=== PATIENT | female | born 1980 | race American Indian/Alaskan Native ===

== ENCOUNTER 2019-01-07 19:14 | Emergency (ER) | payer OTHER ==
--- NOTE | 2019-01-07 19:41 | Emergency Department Report ---
Blank Doc - Documentation Documentation: 38 y o female presents to ED with left temporal throbbing headache, no injury no falls photosensitive, with nausea pain control Acc evaluate
[2019-01-07] MEDS ORDERED: BENADRYL IV STA (23:38)
[2019-01-07] MEDS ORDERED: REGLAN IV STA (23:38)
[2019-01-07] MEDS ORDERED: TORADOL IV STA (23:38)
[2019-01-07] MEDS ORDERED: NACL 0.9% 1000 ML 1,000 ML IV ONE (23:38)
--- NOTE | 2019-01-07 23:46 | Emergency Department Report ---
ED Headache HPI - General Chief Complaint: Headache Stated Complaint: MIGRAINE Time Seen by Provider: 01/07/19 19:37 - History of Present Illness Timing/Duration: other (couple days) Quality: mild, moderate Head Injury Location: temporal, occipital Recent Head Trauma: no recent headache/trauma Modifying Factors: worse with: cold therapy, exposure to light, immobilization, medication, movement, rest, other Associated Symptoms: denies: fatigue, facial pain, fever/chills, nasal congestion, nasal drainage, rash, sinus infection, stiff neck, vision changes, weakness Allergies/Adverse Reactions: Allergies No Known Allergies Allergy (Verified 01/07/19 19:17) Home Medications: Ambulatory Orders Butalb/Acetaminophen/Caffeine [Fioricet 50-300-40 mg CAP] 1 cap PO Q6HR PRN #20 cap 01/08/19 ED Review of Systems ROS: Stated complaint: MIGRAINE Other details as noted in HPI Constitutional: denies: chills, fever Eyes: denies: eye pain, eye discharge, vision change ENT: denies: ear pain, throat pain Respiratory: denies: cough, shortness of breath, wheezing Cardiovascular: denies: chest pain, palpitations Endocrine: no symptoms reported Gastrointestinal: denies: abdominal pain, nausea, diarrhea Genitourinary: denies: urgency, dysuria, discharge Musculoskeletal: denies: back pain, joint swelling, arthralgia Skin: denies: rash, lesions Neurological: denies: headache, weakness, paresthesias Psychiatric: denies: anxiety, depression Hematological/Lymphatic: denies: easy bleeding, easy bruising ED Past Medical Hx - Past Medical History Previous Medical History?: Yes Hx Asthma: Yes - Surgical History Past Surgical History?: No - Social History Smoking Status: Never Smoker Substance Use Type: None - Medications Home Medications: Home Medications Medication Instructions Recorded Confirmed Last Taken Type Butalb/Acetaminophen/Caffeine 1 cap PO Q6HR PRN #20 cap 01/08/19 Unknown Rx [Fioricet 50-300-40 mg CAP] ED Physical Exam - General Limitations: No Limitations General appearance: alert, in no apparent distress - Head Head exam: Present: atraumatic, normocephalic - Eye Eye exam: Present: normal appearance, PERRL, EOMI, scleral icterus, other (neg fundus exam). Absent: conjunctival injection, periorbital swelling, periorbital tenderness Pupils: Present: normal accommodation, other - ENT ENT exam: Present: normal exam, normal orophraynx, mucous membranes moist, TM's normal bilaterally - Neck Neck exam: Present: normal inspection, full ROM. Absent: tenderness, meningismus, lymphadenopathy, thyromegaly - Respiratory Respiratory exam: Present: normal lung sounds bilaterally. Absent: respiratory distress, wheezes, rales, rhonchi, stridor, chest wall tenderness, accessory muscle use, decreased breath sounds, prolonged expiratory - Cardiovascular Cardiovascular Exam: Present: regular rate, normal rhythm. Absent: bradycardia, tachycardia, systolic murmur, diastolic murmur, rubs, gallop - GI/Abdominal GI/Abdominal exam: Present: soft, normal bowel sounds. Absent: tenderness, guarding, rebound, hyperactive bowel sounds, hypoactive bowel sounds, organomegaly - Extremities Exam Extremities exam: Present: normal inspection, full ROM, normal capillary refill. Absent: pedal edema, joint swelling - Back Exam Back exam: Present: normal inspection, full ROM. Absent: CVA tenderness (R), CVA tenderness (L), muscle spasm - Neurological Exam Neurological exam: Present: alert, oriented X3, CN II-XII intact, normal gait. Absent: motor sensory deficit - Psychiatric Psychiatric exam: Present: normal affect, normal mood. Absent: anxious, flat affect, manic - Skin Skin exam: Present: warm, dry, intact, normal color. Absent: rash ED Course Vital Signs 01/07/19 01/08/19 19:38 01:10 Temperature 98.6 F 98 F Pulse Rate 84 77 Respiratory 18 18 Rate Blood Pressure 114/77 Blood Pressure 107/45 [Left] O2 Sat by Pulse 98 99 Oximetry Critical care attestation.: If time is entered above; I have spent that time in minutes in the direct care of this critically ill patient, excluding procedure time. ED Disposition Clinical Impression: Cephalgia Disposition: DC-01 TO HOME OR SELFCARE Is pt being admited?: No Does the pt Need Aspirin: No Condition: Stable Instructions: Migraine Headache (ED), Acute Headache (ED) Prescriptions: Butalb/Acetaminophen/Caffeine [Fioricet 50-300-40 mg CAP] 1 cap PO Q6HR PRN #20 cap PRN Reason: Headache Referrals: PRIMARY CARE, [Primary Care Provider] - 3-5 Days [facility] [Provider Group] - 3-5 Days [facility] [Provider Group] - 3-5 Days
[2019-01-08 02:01] VITALS: BP 107/45
== END 2019-01-08 01:10 | disposition home or self-care (01) ==
LOC: ED 19:14
DX: R51 Headache (principal); R09.81 Nasal congestion; R53.1 Weakness; J45.909 Unspecified asthma, uncomplicated
CPT/HCPCS: 96374; 96375; 99282; J1200; J1885; J2765; J7030

== ENCOUNTER 2019-03-14 08:16 | Emergency (ER) | payer OTHER ==
[2019-03-14] MEDS ORDERED: TORADOL IM ONE (09:43)
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
[2019-03-14 11:00] VITALS: BP 128/74
== END 2019-03-14 10:58 | disposition home or self-care (01) ==
LOC: ED 08:16
DX: M54.5 Low back pain (principal); G89.29 Other chronic pain; J45.909 Unspecified asthma, uncomplicated
CPT/HCPCS: 96372; 99282; J1885

== ENCOUNTER 2019-04-10 01:01 | Emergency (ER) | payer OTHER ==
[2019-04-10 01:09] VITALS: BP 121/69
[2019-04-10 01:40] LABS: Bilirubin,Urine NEG (Negative); Blood,Urine SM (Negative); Color,Urine Yellow (Yellow); Mucus,Urine FEW /HPF; Protein,Urine <15 mg/dL mg/dL (Negative); Urobilinogen,Urine < 2.0 mg/dL (<2.0)
[2019-04-10] MEDS ORDERED: BENADRYL IV ONE (01:52)
[2019-04-10] MEDS ORDERED: TORADOL IV ONE (01:52)
[2019-04-10] MEDS ORDERED: REGLAN IV ONE (01:52)
[2019-04-10] MEDS ORDERED: FIORICET PO ONE (01:53)
--- NOTE | 2019-04-10 02:51 | Emergency Department Report ---
ED General Adult HPI - General Chief complaint: Headache Stated complaint: MIGRAINE,FEMININE ISSUES Time Seen by Provider: 04/10/19 02:10 Source: patient Mode of arrival: Ambulatory Limitations: No Limitations - History of Present Illness Initial comments: Patient is a 38-year-old -N[place]alese female with a history of chronic migraine headaches who presents to the ED with complaint of acute exacerbation of her chronic diffuse migraine headaches with nausea and photophobia for the last 2 days. Patient states that the symptoms are consistent with her chronic migraine headaches. Patient states that she has been taking [id number] medications for pain and that these have not helped control her pain. Patient denies dizziness, change in vision, fever, chills, neck pain, dizziness, chest pain, shortness of breath, sore throat, syncope or seizures, cough or abdominal pain. MD Complaint: Migraine headache -: Gradual, week(s) (1) Location: head Radiation: non-radiation Severity scale (0 -10): 3 Quality: aching, sharp, dull Consistency: constant Improves with: none Worsens with: none Associated Symptoms: denies other symptoms. denies: confusion, chest pain, cough, diaphoresis, fever/chills, headaches, loss of appetite, nausea/vomiting, shortness of breath, syncope, weakness Treatments Prior to Arrival: none - Related Data Previous Rx's Medication Instructions Recorded Last Taken Type Butalb/Acetaminophen/Caffeine 1 cap PO Q6HR PRN #20 cap 01/08/19 Unknown Rx [Fioricet 50-300-40 mg CAP] Butalb/Acetaminophen/Caffeine 1 cap PO Q6HR PRN #20 cap 01/14/19 Unknown Rx [Fioricet 50-300-40 mg CAP] Butalb/Acetamin/Caff 50-325-40 1 tab PO Q6HR PRN #15 tab 04/10/19 Unknown Rx [Fioricet 50-325-40] Ketorolac [Toradol] 10 mg PO Q8H PRN #20 tablet 04/10/19 Unknown Rx Promethazine [Phenergan] 25 mg PO Q6HR PRN #24 tab 04/10/19 Unknown Rx Allergies Allergy/AdvReac Type Severity Reaction Status Date / Time No Known Allergies Allergy Verified 01/07/19 19:17 ED Review of Systems ROS: Stated complaint: MIGRAINE,FEMININE ISSUES Other details as noted in HPI Constitutional: denies: chills, fever Eyes: denies: eye pain, eye discharge, vision change ENT: denies: ear pain, throat pain Respiratory: denies: cough, shortness of breath, wheezing Cardiovascular: denies: chest pain, palpitations Endocrine: no symptoms reported Gastrointestinal: nausea. denies: abdominal pain, vomiting, diarrhea, hematemesis, hematochezia Genitourinary: denies: urgency, dysuria, discharge Musculoskeletal: denies: back pain, joint swelling, arthralgia Skin: denies: rash, lesions Neurological: headache. denies: weakness, paresthesias Psychiatric: denies: anxiety, depression Hematological/Lymphatic: denies: easy bleeding, easy bruising ED Past Medical Hx - Past Medical History Previous Medical History?: Yes Hx Asthma: Yes Additional medical history: back pain - Surgical History Past Surgical History?: No - Social History Smoking Status: Never Smoker Substance Use Type: None - Medications Home Medications: Home Medications Medication Instructions Recorded Confirmed Last Taken Type Butalb/Acetaminophen/Caffeine 1 cap PO Q6HR PRN #20 cap 01/08/19 Unknown Rx [Fioricet 50-300-40 mg CAP] Butalb/Acetaminophen/Caffeine 1 cap PO Q6HR PRN #20 cap 01/14/19 Unknown Rx [Fioricet 50-300-40 mg CAP] Butalb/Acetamin/Caff 50-325-40 1 tab PO Q6HR PRN #15 tab 04/10/19 Unknown Rx [Fioricet 50-325-40] Ketorolac [Toradol] 10 mg PO Q8H PRN #20 tablet 04/10/19 Unknown Rx Promethazine [Phenergan] 25 mg PO Q6HR PRN #24 tab 04/10/19 Unknown Rx ED Physical Exam - General Limitations: No Limitations General appearance: alert, in no apparent distress - Head Head exam: Present: atraumatic, normocephalic, normal inspection - Eye Eye exam: Present: normal appearance, PERRL, EOMI. Absent: scleral icterus, conjunctival injection Pupils: Present: normal accommodation - ENT ENT exam: Present: normal exam, normal orophraynx, mucous membranes moist, TM's normal bilaterally, normal external ear exam - Neck Neck exam: Present: normal inspection, full ROM. Absent: lymphadenopathy - Respiratory Respiratory exam: Present: normal lung sounds bilaterally. Absent: respiratory distress, rales, rhonchi, stridor, chest wall tenderness, accessory muscle use, prolonged expiratory - Cardiovascular Cardiovascular Exam: Present: regular rate, normal rhythm, normal heart sounds. Absent: systolic murmur, diastolic murmur, rubs, gallop - GI/Abdominal GI/Abdominal exam: Present: soft, normal bowel sounds. Absent: tenderness, gua rding, rebound, hyperactive bowel sounds, hypoactive bowel sounds, organomegaly, pulsatile mass - Rectal Rectal exam: Present: deferred - Extremities Exam Extremities exam: Present: normal inspection, full ROM, normal capillary refill - Back Exam Back exam: Present: normal inspection, full ROM. Absent: tenderness, CVA tenderness (R), CVA tenderness (L), vertebral tenderness - Neurological Exam Neurological exam: Present: alert, oriented X3, CN II-XII intact, normal gait, reflexes normal - Psychiatric Psychiatric exam: Present: normal affect, normal mood - Skin Skin exam: Present: warm, dry, intact, normal color. Absent: rash ED Course Vital Signs 04/10/19 01:05 Temperature 98.6 F Pulse Rate 62 Respiratory 19 Rate Blood Pressure 121/69 O2 Sat by Pulse 100 Oximetry - Reevaluation(s) Reevaluation #1: 04/10/19 02:55 Patient is alert and oriented 3 and is not in any distress with normal vital signs. Patient was treated for pain in the ED and on reevaluation, patient's pain is moderately controlled. Patient was discharged home on medications and antiemetics and advised to follow-up with her primary care physician in 3-5 days for reevaluation. Patient is advised to return to the ED immediately if symptoms get worse. ED Medical Decision Making - Medical Decision Making 04/10/19 02:55 Patient is alert and oriented 3 and is not in any distress with normal vital signs. Patient was treated for pain in the ED and on reevaluation, patient's pain is moderately controlled. Patient was discharged home on medications and antiemetics and advised to follow-up with her primary care physician in 3-5 days for reevaluation. Patient is advised to return to the ED immediately if symptoms get worse. Patient is hemodynamically stable at triage - Differential Diagnosis chronic migraine headaches; Chronic pain; Cervical strain Critical care attestation.: If time is entered above; I have spent that time in minutes in the direct care of this critically ill patient, excluding procedure time. ED Disposition Clinical Impression: Chronic migraine without aura Qualifiers: Status migrainosus presence: without status migrainosus Intractability: not intractable Qualified Code(s): G43.709 - Chronic migraine without aura, not intractable, without status migrainosus Disposition: TO HOME OR SELFCARE Is pt being admited?: No Does the pt Need Aspirin: No Condition: Stable Instructions: Migraine Headache (ED) Additional Instructions: Take medications with food, drink plenty of fluids and follow up with your primary Physician in 3-5 days for reevaluation. Return to the ED immediately if symptoms get worse. Prescriptions: Butalb/Acetamin/Caff 50-325-40 [Fioricet 50-325-40] 1 tab PO Q6HR PRN #15 tab PRN Reason: Headache Promethazine [Phenergan] 25 mg PO Q6HR PRN #24 tab PRN Reason: Nausea Ketorolac [Toradol] 10 mg PO Q8H PRN #20 tablet PRN Reason: Pain Referrals: [facility] [Outside] - 3-5 Days Time of Disposition: 03:14 Print Language: HUNGARIAN
== END 2019-04-10 03:31 | disposition home or self-care (01) ==
LOC: ED 01:01
DX: G43.709 Chronic migraine without aura, not intractable, without status migrainosus (principal); J45.909 Unspecified asthma, uncomplicated; M54.9 Dorsalgia, unspecified; Z79.899 Other long term (current) drug therapy
CPT/HCPCS: 81001; 96374; 96375; 99283; J1200; J1885; J2765

== ENCOUNTER 2020-09-25 08:54 | Emergency (ER) | payer OTHER ==
[2020-09-25 10:33] LABS: Bilirubin,Urine NEG (Negative); Blood,Urine MOD (Negative); Color,Urine Yellow (Yellow); Mucus,Urine FEW /HPF; Protein,Urine <15 mg/dL mg/dL (Negative); Urobilinogen,Urine < 2.0 mg/dL (<2.0); WBC,Urine < 1.0 /HPF (0.0-6.0)
[2020-09-25 10:48] LABS: HCG Qualitative,Urine Negative (Negative)
[2020-09-25] MEDS ORDERED: HYDROcodone/ACETAMINOPHEN 5-325 MG TAB PO ONE (14:04)
--- NOTE | 2020-09-25 14:07 | Emergency Department Report ---
ED Abdominal Pain HPI - General Chief Complaint: Urogenital-Female Stated Complaint: PERSONAL Time Seen by Provider: 09/25/20 14:03 Source: patient Mode of arrival: Ambulatory Limitations: No Limitations - History of Present Illness Initial Comments: This is a 40-year-old female she is complaining of left lower quadrant pain for several weeks. Patient reports a history of bacterial vaginosis several weeks ago she was treated by her physician with Flagyl. She now states that left lower abdominal pain has been worsening and is now a 8/10. She denies nausea vomiting and diarrhea denies fever chills. Her last bowel movement was yesterday she denies fever she denies any past surgical history she is awake alert oriented in no acute distress MD Complaint: abdominal pain -: week(s) Location: LLQ Radiation: none Migration to: no migration Quality: aching Consistency: constant Improves With: nothing Worsens With: nothing Associated Symptoms: denies other symptoms. denies: nausea, vomiting, chills, constipation, dysuria, melena, hematuria, anorexia - Related Data Previous Rx's Medication Instructions Recorded Last Taken Type Butalb/Acetaminophen/Caffeine 1 cap PO Q6HR PRN #20 cap 01/08/19 Unknown Rx [Fioricet 50-300-40 mg CAP] Butalb/Acetaminophen/Caffeine 1 cap PO Q6HR PRN #20 cap 01/14/19 Unknown Rx [Fioricet 50-300-40 mg CAP] Butalb/Acetamin/Caff 50-325-40 1 tab PO Q6HR PRN #15 tab 04/10/19 Unknown Rx [Fioricet 50-325-40] Fluconazole (Nf) [Diflucan TAB] 150 mg PO ONCE #5 tablet 04/10/19 Unknown Rx Ketorolac [Toradol] 10 mg PO Q8H PRN #20 tablet 04/10/19 Unknown Rx Promethazine [Phenergan] 25 mg PO Q6HR PRN #24 tab 04/10/19 Unknown Rx metroNIDAZOLE [Flagyl] 500 mg PO Q12HR #20 tab 04/10/19 Unknown Rx hydrOXYzine HCL [Atarax] 25 mg PO Q6HR PRN #20 tablet 06/28/20 Unknown Rx metroNIDAZOLE [Flagyl] 500 mg PO Q12HR #28 tab 06/28/20 Unknown Rx predniSONE [Deltasone] 20 mg PO QDAY #5 tab 06/28/20 Unknown Rx Allergies Allergy/AdvReac Type Severity Reaction Status Date / Time No Known Allergies Allergy Verified 01/07/19 19:17 ED Review of Systems ROS: Stated complaint: PERSONAL Other details as noted in HPI Comment: All other systems reviewed and negative Constitutional: no symptoms reported Eyes: denies: eye pain, eye discharge ENT: denies: ear pain, throat pain, dental pain, hearing loss Respiratory: denies: cough, shortness of breath, SOB with exertion Cardiovascular: denies: chest pain, palpitations, dyspnea on exertion Endocrine: denies: see HPI, excessive sweating, flushing, intolerance to cold Gastrointestinal: denies: abdominal pain, nausea, vomiting, diarrhea, constipation, hematemesis, hematochezia Skin: denies: rash, lesions Neurological: denies: headache, weakness, paresthesias, abnormal gait Psychiatric: denies: anxiety, depression, auditory hallucinations, visual hallucinations, homicidal thoughts ED Past Medical Hx - Past Medical History Previous Medical History?: Yes Hx Asthma: Yes Additional medical history: back pain, Miltiple diagnosis of bacterial vaginosis - Surgical History Past Surgical History?: No - Social History Smoking Status: Never Smoker Substance Use Type: Alcohol - Medications Home Medications: Home Medications Medication Instructions Recorded Confirmed Last Taken Type Butalb/Acetaminophen/Caffeine 1 cap PO Q6HR PRN #20 cap 01/08/19 Unknown Rx [Fioricet 50-300-40 mg CAP] Butalb/Acetaminophen/Caffeine 1 cap PO Q6HR PRN #20 cap 01/14/19 Unknown Rx [Fioricet 50-300-40 mg CAP] Butalb/Acetamin/Caff 50-325-40 1 tab PO Q6HR PRN #15 tab 04/10/19 Unknown Rx [Fioricet 50-325-40] Fluconazole (Nf) [Diflucan TAB] 150 mg PO ONCE #5 tablet 04/10/19 Unknown Rx Ketorolac [Toradol] 10 mg PO Q8H PRN #20 tablet 04/10/19 Unknown Rx Promethazine [Phenergan] 25 mg PO Q6HR PRN #24 tab 04/10/19 Unknown Rx metroNIDAZOLE [Flagyl] 500 mg PO Q12HR #20 tab 04/10/19 Unknown Rx hydrOXYzine HCL [Atarax] 25 mg PO Q6HR PRN #20 tablet 06/28/20 Unknown Rx metroNIDAZOLE [Flagyl] 500 mg PO Q12HR #28 tab 06/28/20 Unknown Rx predniSONE [Deltasone] 20 mg PO QDAY #5 tab 06/28/20 Unknown Rx ED Physical Exam - General Limitations: No Limitations General appearance: alert, in no apparent distress - Head Head exam: Present: atraumatic - Eye Eye exam: Present: normal appearance. Absent: conjunctival injection - ENT ENT exam: Present: normal exam, mucous membranes moist - Neck Neck exam: Present: normal inspection. Absent: lymphadenopathy - Respiratory Respiratory exam: Present: normal lung sounds bilaterally. Absent: respiratory distress, wheezes, rales, rhonchi - Cardiovascular Cardiovascular Exam: Present: regular rate, normal heart sounds - GI/Abdominal GI/Abdominal exam: Present: soft, tenderness (Left lower quadrant), normal bowel sounds. Absent: distended, guarding, rebound, rigid - Rectal Rectal exam: Present: deferred - Extremities Exam Extremities exam: Present: normal inspection, full ROM, normal capillary refill - Back Exam Back exam: Present: normal inspection - Neurological Exam Neurological exam: Present: alert, oriented X3 - Psychiatric Psychiatric exam: Present: normal affect - Skin Skin exam: Present: warm, dry, intact, normal color ED Course Vital Signs 09/25/20 09:04 Temperature 98.3 F Pulse Rate 52 L Respiratory 20 Rate Blood Pressure 123/68 O2 Sat by Pulse 100 Oximetry ED Medical Decision Making - Lab Data Result diagrams: 09/25/20 14:39 09/25/20 14:39 - Radiology Data Radiology results: report reviewed INDICATION / CLINICAL INFORMATION: Left lower quadrant abdominal pain for 2 days. TECHNIQUE: Axial CT images were obtained through the abdomen and pelvis without IV con trast. All CT scans at this location are performed using CT dose reduction for ALARA by means of a utomated exposure control. COMPARISON: None available. FINDINGS: LOWER CHEST: No significant abnormality. LIVER: No significant abnormality. GALLBLADDER: No significant abnormality. PANCREAS: No significant abnormality. SPLEEN: No significant abnormality. ADRENALS: No significant abnormality. KIDNEYS / URETERS: No significant abnormality. URINARY BLADDER: No significant abnormality. REPRODUCTIVE ORGANS: Numerous noncalcified uterine fibroids. STOMACH / SMALL BOWEL: No significant abnormality. COLON: No significant abnormality. APPENDIX: No significant abnormality. PERITONEUM: No free fluid. No free air. No fluid collection. LYMPH NODES: No significant adenopathy. AORTA / ARTERIES: No significant abnormality. IVC / VEINS: No significant abnormality. SKELETAL SYSTEM: No significant abnormality. ADDITIONAL FINDINGS: None. IMPRESSION: 1. No acute abdominopelvic abnormality. - Medical Decision Making 40-year-old female with complaints of left lower quadrant pain for several weeks. Labs with no acute findings urine negative infection negative test. CT of her abdomen and pelvis reveals no acute findings the plan is for patient to follow-up with her primary care doctor particularly she may also follow-up with [employer]GER if she is concerned with ongoing bacterial vaginosis she states that she was treated for BV several weeks ago but she still feels she still has the odor she completed a 14-day course of Flagyl at this point I would not resume Flagyl at this time I would like for patient to follow-up with OB- smoke control supervisor or the health department for STD testing and treatment if indicated Critical Care Time: No Critical care attestation.: If time is entered above; I have spent that time in minutes in the direct care of this critically ill patient, excluding procedure time. ED Disposition Clinical Impression: Left lower quadrant abdominal pain Disposition: - TO HOME OR SELFCARE Is pt being admited?: No Does the pt Need Aspirin: No Condition: Stable Instructions: Abdominal Pain, Adult Additional Instructions: CAT scan of the abdomen and pelvis shows fibroid uterus. No other acute findings on CAT scan. Urine with no infection. She has negative test blood work with no acute findings. I suggest that you follow-up with your DEAL[employer] SALES MANAGER for any additional testing and for evaluation of fibroids. If you want to if you are concerned about sexually transmitted diseases or bacterial vaginosis please follow-up with your DEALER SALES MANAGER or local clinic or the [facility]. For pain management you can take [id number] Tylenol 2 tablets every 4-6 hours as needed for pain or ibuprofen 200 mg you can take 2 to 3 tablets every 6 hours as needed for pain. You may return to the emergency room for worsening symptoms such as fever inability to eat Referrals: WESLEY TEJADA MD [Primary Care Provider] - 3-5 Days NAVI BUTLER MD [Staff Physician] - 3-5 Days Time of Disposition: 15:43
--- NOTE | 2020-09-25 14:42 | Cat Scan Report ---
CT ABDOMEN AND PELVIS WITHOUT CONTRAST INDICATION / CLINICAL INFORMATION: Left lower quadrant abdominal pain for 2 days. TECHNIQUE: Axial CT images were obtained through the abdomen and pelvis without IV contrast. All CT scans at [facility] location are performed using CT dose reduction for ALARA by means of automated exposure control. COMPARISON: None available. FINDINGS: LOWER CHEST: No significant abnormality. LIVER: No significant abnormality. GALLBLADDER: No significant abnormality. PANCREAS: No significant abnormality. SPLEEN: No significant abnormality. ADRENALS: No significant abnormality. KIDNEYS / URETERS: No significant abnormality. URINARY BLADDER: No significant abnormality. REPRODUCTIVE ORGANS: Numerous noncalcified uterine fibroids. STOMACH / SMALL BOWEL: No significant abnormality. COLON: No significant abnormality. APPENDIX: No significant abnormality. PERITONEUM: No free fluid. No free air. No fluid collection. LYMPH NODES: No significant adenopathy. AORTA / ARTERIES: No significant abnormality. IVC / VEINS: No significant abnormality. SKELETAL SYSTEM: No significant abnormality. ADDITIONAL FINDINGS: None. IMPRESSION: 1. No acute abdominopelvic abnormality. 2. Fibroid uterus. Signer Name: Jared Hernandez MD Signed: 09/25/2020 2:38 PM Workstation Name: [id number]
[2020-09-25 15:22] LABS: Hematocrit 35.3 % (30.3-42.9); Hemoglobin 11.5 gm/dl (10.1-14.3); Mean Corpuscular HGB Conc 33 % (30-34); Mean Corpuscular Volume 84 fl (79-97); Platelet Count 285 K/mm3 (140-440); Red Cell Distribution Width 13.6 % (13.2-15.2)
[2020-09-25 15:27] LABS: Alanine Aminotransferase 16 units/L (7-56); BUN/Creatinine Ratio 11; Blood Urea Nitrogen 9 mg/dL (7-17); Calcium 9.4 mg/dL (8.4-10.2); Hemolysis Index 2
[2020-09-25 16:03] VITALS: BP 118/72
== END 2020-09-25 16:02 | disposition home or self-care (01) ==
LOC: ED 08:54 → EEVIPCON 08:54 → ED 16:02
DX: R10.32 Left lower quadrant pain (principal); J45.909 Unspecified asthma, uncomplicated; Z79.899 Other long term (current) drug therapy
CPT/HCPCS: 36415; 74176; 80053; 81001; 81025; 83690; 85027

== ENCOUNTER 2022-05-04 16:12 | Emergency (ER) | payer OTHER | END 2022-05-04 16:30 | disposition left against medical advice (07) | LOC: ED 16:12 | DX: M54.9 Dorsalgia, unspecified (principal); Z53.21 Procedure and treatment not carried out due to patient leaving prior to being seen by health care provider ==

== ENCOUNTER 2022-05-06 14:34 | Emergency (ER) | payer OTHER ==
[2022-05-06 15:00] VITALS: BP 134/82
[2022-05-06] MEDS ORDERED: oxyCODONE /ACETAMINOPHEN 5-325MG TAB PO ONE (20:49)
--- NOTE | 2022-05-06 20:54 | Emergency Department Report ---
ED Back Pain/Injury HPI - General Chief Complaint: Back Pain/Injury Stated Complaint: BACK PAIN Time Seen by Provider: 05/06/22 20:45 Source: patient Limitations: No Limitations - History of Present Illness Initial Comments: 41-year-old female presents to the emergency department with back pain. Patient describes sharp pain in her lower back on the right since she fell down a couple of stairs on Sunday. Patient reports she was seen in the emergency department and was told she would get better with some Flexeril and diclofenac, states symptoms have progressively gotten worse, worse with inspiration worse with moving, states having a hard time breathing due to pain. She denies history of back problems however from chart review "patient does have a visit for her chronic back pain". She denies weakness numbness or paresthesias of the extremities, pain does not radiate to the abdomen and the chest, no headache dizziness or blurred vision. Ambulates without assistance. No bladder or bowel dysfunction MD Complaint: back pain, back injury, fall -: days(s) Similar Symptoms Previously: No Place: home Severity scale (0 -10): 10 Quality: sharp, stabbing Consistency: constant Improves With: none Worsens With: movement, sitting upright, walking, deep breaths/cough Context: fall Associated Symptoms: denies other symptoms Treatments Prior to Arrival: NSAIDS, prescription analgesics - Related Data Previous Rx's Medication Instructions Recorded Last Taken Type Butalb/Acetaminophen/Caffeine 1 cap PO Q6HR PRN #20 cap 01/08/19 Unknown Rx [Fioricet 50-300-40 mg CAP] Butalb/Acetaminophen/Caffeine 1 cap PO Q6HR PRN #20 cap 01/14/19 Unknown Rx [Fioricet 50-300-40 mg CAP] Butalb/Acetamin/Caff 50-325-40 1 tab PO Q6HR PRN #15 tab 04/10/19 Unknown Rx [Fioricet 50-325-40] Fluconazole (Nf) [Diflucan TAB] 150 mg PO ONCE #5 tablet 04/10/19 Unknown Rx Ketorolac [Toradol] 10 mg PO Q8H PRN #20 tablet 04/10/19 Unknown Rx Promethazine [Phenergan] 25 mg PO Q6HR PRN #24 tab 04/10/19 Unknown Rx metroNIDAZOLE [Flagyl] 500 mg PO Q12HR #20 tab 04/10/19 Unknown Rx hydrOXYzine HCL [Atarax] 25 mg PO Q6HR PRN #20 tablet 06/28/20 Unknown Rx metroNIDAZOLE [Flagyl] 500 mg PO Q12HR #28 tab 06/28/20 Unknown Rx predniSONE [Deltasone] 20 mg PO QDAY #5 tab 06/28/20 Unknown Rx oxyCODONE /ACETAMINOPHEN [Percocet 1 tab PO Q6HR PRN 2 Days #10 tablet 01/13/22 Unknown Rx 5/325] predniSONE [Deltasone] 50 mg PO QDAY 5 Days #5 tab 01/13/22 Unknown Rx Methyl Salicylate/Menth/Camph 1 each TP DAILY #12 patch 05/07/22 Unknown Rx [Salonpas 3.1%-6.0%-10.0% Patch] Allergies Allergy/AdvReac Type Severity Reaction Status Date / Time No Known Allergies Allergy Verified 01/07/19 19:17 ED Review of Systems ROS: Stated complaint: BACK PAIN Other details as noted in HPI Comment: All other systems reviewed and negative Constitutional: no symptoms reported. denies: chills Respiratory: see HPI. denies: cough, wheezing Cardiovascular: denies: chest pain, palpitations, dyspnea on exertion Endocrine: denies: intolerance to cold, intolerance to heat Gastrointestinal: denies: abdominal pain, nausea, vomiting Genitourinary: denies: urgency, dysuria, frequency Musculoskeletal: back pain, arthralgia. denies: joint swelling, myalgia Skin: denies: lesions, change in color, pruritus Neurological: denies: headache, weakness, numbness, paresthesias ED Past Medical Hx - Past Medical History Previous Medical History?: Yes Hx Asthma: Yes Additional medical history: back pain, Miltiple diagnosis of bacterial vaginosis - Surgical History Past Surgical History?: No - Social History Smoking Status: Never Smoker Substance Use Type: Alcohol - Medications Home Medications: Home Medications Medication Instructions Recorded Confirmed Last Taken Type Butalb/Acetaminophen/Caffeine 1 cap PO Q6HR PRN #20 cap 01/08/19 Unknown Rx [Fioricet 50-300-40 mg CAP] Butalb/Acetaminophen/Caffeine 1 cap PO Q6HR PRN #20 cap 01/14/19 Unknown Rx [Fioricet 50-300-40 mg CAP] Butalb/Acetamin/Caff 50-325-40 1 tab PO Q6HR PRN #15 tab 04/10/19 Unknown Rx [Fioricet 50-325-40] Fluconazole (Nf) [Diflucan TAB] 150 mg PO ONCE #5 tablet 04/10/19 Unknown Rx Ketorolac [Toradol] 10 mg PO Q8H PRN #20 tablet 04/10/19 Unknown Rx Promethazine [Phenergan] 25 mg PO Q6HR PRN #24 tab 04/10/19 Unknown Rx metroNIDAZOLE [Flagyl] 500 mg PO Q12HR #20 tab 04/10/19 Unknown Rx hydrOXYzine HCL [Atarax] 25 mg PO Q6HR PRN #20 tablet 06/28/20 Unknown Rx metroNIDAZOLE [Flagyl] 500 mg PO Q12HR #28 tab 06/28/20 Unknown Rx predniSONE [Deltasone] 20 mg PO QDAY #5 tab 06/28/20 Unknown Rx oxyCODONE /ACETAMINOPHEN [Percocet 1 tab PO Q6HR PRN 2 Days #10 tablet 01/13/22 Unknown Rx 5/325] predniSONE [Deltasone] 50 mg PO QDAY 5 Days #5 tab 01/13/22 Unknown Rx Methyl Salicylate/Menth/Camph 1 each TP DAILY #12 patch 05/07/22 Unknown Rx [Salonpas 3.1%-6.0%-10.0% Patch] ED Physical Exam - General Limitations: No Limitations General appearance: alert, in no apparent distress - Head Head exam: Present: atraumatic - Eye Eye exam: Present: normal appearance Pupils: Present: normal accommodation - ENT ENT exam: Present: normal exam, normal orophraynx - Neck Neck exam: Present: normal inspection. Absent: tenderness - Respiratory Respiratory exam: Present: normal lung sounds bilaterally. Absent: respiratory distress - Cardiovascular Cardiovascular Exam: Present: regular rate, normal rhythm - GI/Abdominal GI/Abdominal exam: Present: soft. Absent: distended, tenderness, hyperactive bowel sounds, hypoactive bowel sounds - Rectal Rectal exam: Present: deferred - Extremities Exam Extremities exam: Present: normal inspection, full ROM, tenderness, normal capillary refill. Absent: pedal edema, joint swelling, calf tenderness - Back Exam Back exam: Present: tenderness, muscle spasm, paraspinal tenderness, vertebral tenderness (And is overly tender when her back is palpated, there is midline lumbar andLumbar tenderness in the right. Full range of motion in her hips no bony tenderness in the hip or pelvic joints. No cervical). Absent: full ROM - Neurological Exam Neurological exam: Present: alert, oriented X3, CN II-XII intact, normal gait, reflexes normal. Absent: abnormal gait, motor sensory deficit - Psychiatric Psychiatric exam: Present: normal affect, normal mood - Skin Skin exam: Present: warm, dry, intact, normal color ED Course Vital Signs 05/06/22 14:58 Temperature 98.8 F Pulse Rate 74 Respiratory 20 Rate Blood Pressure 134/82 [Right] O2 Sat by Pulse 99 Oximetry ED Medical Decision Making - Medical Decision Making 41-year-old female presents to the emergency department with back pain. Patient describes sharp pain in her lower back on the right since she fell down a couple of stairs on Sunday. Patient reports she was seen in the emergency department and was told she would get better with some Flexeril and diclofenac, states symptoms have progressively gotten worse, worse with inspiration worse with moving, states having a hard time breathing due to pain. She denies history of back problems however from chart review "patient does have a visit for her chronic back pain". She denies weakness numbness or paresthesias of the extremities, pain does not radiate to the abdomen and the chest, no headache dizziness or blurred vision. Ambulates without assistance. No bladder or bowel dysfunction. Due to the recent injury and his second visit to the emergency department for worsening back pain CT scan of the lumbar area obtained today Results are negative for acute fractures dislocation or subluxations. No acute intra-abdominal process, patient has remained stable throughout ED course, ambulates to the restroom, dtl's, sensation movement equal symmetrically, no headache dizziness or vision changes. Discharged home with supportive therapy, encouraged her to continue taking the diclofenac and the Flexeril which was previously prescribed, added some Salonpas to her prescription. With outpatient follow-up. Patient remained stable nontoxic-appearing, afebrile, ambulating steadily withou t assistance. Gone over ED findings with patient as well as plan for follow-up. Also discussed return precautions with patient, all questions and concerns addressed. Patient is stable to be discharged follow-up outpatient. Audio voice dictation device used, hence the chart might contain some dictation errors, mispronunciations, wrong spelling and wrong verbiage. Critical care attestation.: If time is entered above; I have spent that time in minutes in the direct care of this critically ill patient, excluding procedure time. ED Disposition Clinical Impression: Acute exacerbation of chronic low back pain, Fall down stairs Disposition: HOME / SELF CARE / HOMELESS Is pt being admited?: No Does the pt Need Aspirin: No Condition: Stable Instructions: Lumbar Sprain, Acute Back Pain, Adult Prescriptions: Methyl Salicylate/Menth/Camph [Salonpas 3.1%-6.0%-10.0% Patch] 1 each TP DAILY #12 patch Referrals: PRIMARY CAREMD [Primary Care Provider] - 3-5 Days NAVI BUTLER MD [Staff Physician] - 3-5 Days
[2022-05-06 21:47] LABS: Bacteria,Urine 1+ /HPF (Negative); Mucus,Urine FEW /HPF
[2022-05-06 22:11] LABS: Bilirubin,Urine Negative (Negative); Color,Urine Yellow (Yellow)
[2022-05-06 22:12] LABS: Blood,Urine Small (Negative); HCG Qualitative,Urine Negative (Negative); Urobilinogen,Urine < 2.0 mg/dL (<2.0)
--- NOTE | 2022-05-06 23:12 | Cat Scan Report ---
CT LUMBAR SPINE WITHOUT CONTRAST INDICATION/CLINICAL INFORMATION: Low back pain after fall. COMPARISON: CT abdomen and pelvis without contrast from 09/25/2020. TECHNIQUE: Axial, coronal and sagittal noncontrast CT imaging of the lumbar spine was performed. All CT scans at this location are performed using CT dose reduction for ALARA by means of automated expos ure control. FINDINGS: ALIGNMENT: Normal alignment. VERTEBRAE: No fracture. Vertebral body heights are preserved. C1 and C2 are congruent. SPONDYLOSIS: No significant spondylosis. SOFT TISSUES: No acute findings. Multiple probable calcified uterine fibroids are seen without other significant abnormalities. ADDITIONAL FINDINGS: No significant additional findings. IMPRESSION: 1. No acute abnormality of the lumbar spine. 2. Additional findings as above. Signer Name: Kp Montgomery MD Signed: 05/06/2022 11:08 PM Workstation Name: [id number]
== END 2022-05-07 00:52 | disposition home or self-care (01) ==
LOC: ED 14:34
DX: M54.50 Low back pain, unspecified (principal); J45.909 Unspecified asthma, uncomplicated; W10.8XXA Fall (on) (from) other stairs and steps, initial encounter; Y93.89 Activity, other specified; Y92.89 Other specified places as the place of occurrence of the external cause; Y99.8 Other external cause status
CPT/HCPCS: 72131; 81001; 81025; 99284